=== PATIENT | male | born 1995 | race Caucasian/White ===

== ENCOUNTER 2017-09-05 12:14 | Emergency (ER) | payer OTHER, MEDICAID ==
[2017-09-05] MEDS: LORAZEPAM 1 MG TAB PO (14:29)
== END 2017-09-05 16:06 | disposition home or self-care (01) ==
LOC: FTE 12:14
DX: F41.9 Anxiety disorder, unspecified (principal); R00.2 Palpitations
CPT/HCPCS: 93005; 99283-25